=== PATIENT | male | born 1985 | race African-American/Black ===

== ENCOUNTER 2022-08-31 22:36 | Emergency (ER) | payer SELFPAY ==
[~2022-08-31] VITALS: Ht 182.9 cm; Wt 90.0 kg
[2022-09-01 00:34] LABS: BASOPHILS % 0.4 % (0.0-2.0); EOSINOPHILS % 0.1 % (0.0-5.0); HEMATOCRIT. 44.4 % (42.0-52.0); HEMOGLOBIN. 14.3 g/dL (14.0-18.0); LYMPHOCYTES % 15.5 % (20.0-50.0); MEAN CORPUSCULAR HEMOGLOBIN 29.1 pg (28.0-32.0); MEAN CORPUSCULAR VOLUME 90.1 fL (80.0-94.0); MEAN PLATELET VOLUME 7.8 fl (7.4-10.4); PLATELET 242 x1000/uL (130-400); RED BLOOD CELL COUNT 4.92 mill/uL (4.7-6.1); RED CELL DISTRIBUTION WIDTH 13.7 % (11.6-14.6)
[2022-09-01 00:35] LABS: CHLORIDE 101 mEq/L (98-107)
[2022-09-01 00:39] LABS: PROTHROMBIN TIME 10.3 sec (9.6-11.0)
[2022-09-01] MEDS ORDERED: ACETAMINOPHEN 325MG TABLET PO ONE (00:45)
[2022-09-01 00:46] LABS: ETHANOL BLOOD 24 mg/dL
[2022-09-01] MEDS ORDERED: ONDANSETRON HCL 4MG/2ML INJ IV ONE (01:00)
[2022-09-01] MEDS ORDERED: MAGNESIUM/ALUMINUM HYDROXIDE/SIMETHICONE 30ML UDC PO ONE (01:00)
[2022-09-01] MEDS ORDERED: FAMOTIDINE 20MG/2ML VIAL IV ONE (01:00)
[2022-09-01] MEDS ORDERED: SODIUM CHLORIDE 0.9% 1,000 ML IV ONE (01:00)
[2022-09-01 04:00] VITALS: BP 121/67
[2022-09-01] MEDS ORDERED: ONDA4TAB11 PO (05:42)
== END 2022-09-01 07:06 | disposition home or self-care (01) ==
LOC: ER 22:36
DX: B34.9 Viral infection, unspecified (principal); E16.2 Hypoglycemia, unspecified; Z20.822 Contact with and (suspected) exposure to COVID-19
CPT/HCPCS: 36415; 71045; 80053; 80320; 82962; 83690; 84484; 85025; 85610; 87426; 87804; 93005; 96361; 96374; 96375; 99285; C9803; J2405; J3490; J7030; Z7610; G0480